=== PATIENT | female | born 1950 | race Caucasian/White ===

== ENCOUNTER 2024-10-31 14:30 | Emergency (ER) | payer OTHER ==
[2024-10-31 14:39] VITALS: BP 170/91; PULSE 69; RESP 18; TEMP 98.1; BMI 32.0
[2024-10-31] MEDS ORDERED: ACETAMINOPHEN 325 MG TABLET (FP) ONE (15:20)
[2024-10-31] MEDS: ACETAMINOPHEN 500 MG TABLET (FP) PO ONE (15:28)
[2024-10-31] MEDS ORDERED: DIPHTH,PERTUSS(ACELL),TET 0.5 ML DISP.SYRIN IM ONE (17:30)
[2024-10-31] MEDS: DIPHTH,PERTUSS(ACELL),TET 0.5 ML DISP.SYRIN IM ONE (17:40)
== END 2024-10-31 19:27 | disposition home or self-care (01) ==
LOC: JER 14:30
PROC: 3E0234Z Introduction of Serum, Toxoid and Vaccine into Muscle, Percutaneous Approach (ICD-10-PCS; principal; 2024-10-31)
DX: S00.81XA Abrasion of other part of head, initial encounter (principal); M79.641 Pain in right hand; M79.642 Pain in left hand; Z23 Encounter for immunization; W01.0XXA Fall on same level from slipping, tripping and stumbling without subsequent striking against object, initial encounter; Y93.01 Activity, walking, marching and hiking
CPT/HCPCS: 71101-TC-LT-FY; 73110-TC-LT-FY; 73110-TC-RT-FY; 73130-TC-LT-FY; 73130-TC-RT-FY; 90471; 90715; 93005; 93010; 99284-25